=== PATIENT | male | born 1960 | race African-American/Black ===

== ENCOUNTER 2016-12-16 21:21 | Emergency (ER) | payer OTHER ==
[~2016-12-16] VITALS: Ht 182.9 cm; Wt 143.6 kg
[~2016-12-16 21:21] MED LIST: ASPI325T8 PO; ATOR20TA58 PO; CALC667C6 PO; FURO40TA4 PO; LABE200T2 PO; LOSA50TA2 PO; LOSA50TA6 PO
[2016-12-16] MEDS ORDERED: FUROSEMIDE 40 MG/4 ML VIAL ONE (21:50)
--- NOTE | 2016-12-16 21:52 | PHYS DOC ---
General Chief Complaint: SHORTNESS OF BREATH Stated Complaint: SHORTNESS OF BREATH Time Seen by MD: 21:23 Source: patient, old records Exam Limitations: no limitations Problems: History of Present Illness Initial Comments Patient is a 56-year-old male who comes to the emergency department complaining of shortness of breath. Patient states that for the past month he's had worsening nausea and difficulty breathing. He says about a month ago every few days he would have an episode where he would get nauseous and vomit what he describes as clear phlegm. He noticed this took place primarily in the mornings however the last few days it' s happened right before bed as well. Initially these episodes would happen every few days, they have been increasing in frequency and intensity and for the past week he says he's had these episodes of nausea and vomiting of clear phlegm daily. Today he was feeling so badly that he chose not to take any of his normal medications. He has history of congestive heart failure and for the past week he's had difficulty breathing even at rest. ED VS: 99.3, 107, 22, 205/128, 95% RA Patient has history of diabetes however he's been off insulin for 2 years. He does not check his sugars and is not sure what his last hemoglobin A1c was. 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 Last echocardiogram was June 2015 ejection fraction 50-55% Patient used to follow with Dr. Saab he currently does not have a primary care physician. Patient follows with Dr. Fletcher nephrology. He denies focal abdominal pain, chest pain, fever chills sweats or myalgias, headache or focal weakness, changes with urination. Patient has had some loose stools he denies dark tarry stools and bright red blood per rectum. Timing/Duration: getting worse (2 weeks), changing over time Severity: severe Modifying Factors: worse with eating, worse with movement, improves with rest Associated Symptoms: cough, malaise, nausea/vomiting, shortness of breath, weakness, other Allergies: Coded Allergies: No Known Drug Allergies (Unverified , 02/24/14) Past Medical History Medical History: other (hypertension, Chronic Kidney Disease Stage 4 or 5 ( follows with Dr Fletcher/has refused dialysis since Jun 2015), obstructive sleep apnea, CVA x 2 (2010, 2012), hyperlipidemia, diabetes mellitus, congestive heart failure, morbid obesity, peripheral neuropathy, gastrointestinal bleed, peptic ulcer disease) Surgical History: no surgical history Social History Smoker: non-smoker Alcohol: none Drugs: none Review of Systems Constitutional: denies chills, denies diaphoresis, denies fever, malaise, weakness Respiratory: see HPI, cough, orthopnea, shortness of breath, denies stridor, wheezing Cardiovascular: see HPI, denies chest pain, edema, denies palpitations, denies syncope, other (PND, orthopnea) Gastrointestinal: denies abdominal pain, denies constipation, denies diarrhea, nausea, vomiting Genitourinary: denies dysuria, denies frequency, denies hematuria Musculoskeletal: denies back pain, denies joint swelling, denies neck pain Psychiatric/Neurological: denies headache, denies numbness, denies paresthesia , denies weakness Hematologic/Lymphatic: see HPI, denies blood clots, denies easy bleeding, denies easy bruising Physical Exam General Appearance: other (dyspnea noted at rest, conversational dyspnea to short sentences with 2L NC O2) Ear, Nose, Throat: hearing grossly normal, normal ENT inspection, normal pharynx (mucus membranes very dry, lips cracked) Neck: non-tender, supple Respiratory: chest non-tender, decreased breath sounds, accessory muscle use, wheezing, other (decreased BS b/l lower lung nieto, wheezes b/l, accessory muscle use, respiratory distress) Cardiovascular: normal peripheral pulses, tachycardia Gastrointestinal: normal bowel sounds, soft (obese, nondistended, no focal TTP , neg mcburney/harris, no mass) Back: no CVA tenderness, no vertebral tenderness Extremities: normal range of motion (4+ pitting lower extremity edema involving lower legs), pelvis stable Neurologic/Psychiatric: 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 Interpreted by me. Aspirin 324 mg by mouth, Lasix 20 mg IV, metoprolol 5 mg IV, and DuoNeb given upon patient arrival. 2207: VS improved after lopressor 5mg IV, currently HR 90, rr 33, BP 185/94, 95 % RA Pertinent labs: Hemoglobin 7.3 normocytic, d-dimer 2.78, INR 1.2, BUN 79, creatinine 12.3, corrected calcium 5.9, lactic acid 0.8, creatine kinase 2299, troponin I 0.447, BNP 22,345 Arterial blood gas: PH 7.423, PCO2 28.8, PO2 59, base excess -6, bicarbonate 18.8, PCO2 20, oxygen saturation 91% FiO2 21% 2324: I discussed the patient with Dr. marie who accepts ICU admission for transfer to [facility]. Cardiology, nephrology, and GI or surgery will likely need to be consulted. Dr. Stahl does request that I call nephrology tonight to see if there are orders which need to be implemented before the morning. 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 No further orders, plan for dialysis in am. IMPRESSIONS: Respiratory distress Congestive heart failure End-stage renal disease Rhabdomyolysis Normocytic anemia with history of GI bleed Nausea vomiting Elevated troponin and d-dimer Hypocalcemia Departure Time of Disposition: 23:32 Disposition: 02 XFER SHT-TRM HOSP Diagnosis: Respiratory Distress, CHF, ESRD, elevated troponin Condition: STABLE Additional Instructions: EMS transfer to [facility] for ICU admission Dr Stahl is accepting, cardiology/ nephrology to be consulted on arrival. Critical Care Note Total Time (mins): 30 Comments Critical care time spent going through old records, contacting specialists and arranging transfer, rechecking patient and documentation. ANN POLANCO DO Dec 16, 2016 21:52
[2016-12-16] MEDS ORDERED: FUROSEMIDE 40 MG/4 ML VIAL IVP ONE (22:00)
[2016-12-16] MEDS ORDERED: METOPROLOL TARTRATE 5 MG/5 ML VIAL. IV ONE (22:00)
[2016-12-16] MEDS ORDERED: ASPIRIN 81 MG TAB.CHEW PO ONE (22:00)
[2016-12-16] MEDS ORDERED: IPRATRPIUM/ALBUTEROL 0.5/2.5MG 3 ML NEBU. NEB ONE (22:00)
[2016-12-16 22:16] LABS: BASO % 1 % (0-3); EOS # 0.5 x10^3/uL (0.0-0.7); EOS % 6 % (0-3); HEMATOCRIT 22.2 % (39.0-53.0); HEMOGLOBIN 7.3 g/dL (13.0-17.5); LYMPH # 0.9 x10^3/uL (1.0-4.8); LYMPH % 11 % (24-48); MEAN CORPUSCULAR HEMOGLOBIN 28 pg (25-35); MEAN CORPUSCULAR HGB CONC 33 g/dL (31-37); MEAN CORPUSCULAR VOLUME 83 fL (79-100); MONO # 0.5 x10^3/uL (0.0-1.1); MONO % 6 % (0-9); NEUT # 6.2 x10^3uL (1.8-7.7); NEUT % 76 % (31-73); PLATELET COUNT 207 x10^3/uL (140-400); RED BLOOD COUNT 2.66 x10^6/uL (4.30-5.70); RED CELL DISTRIBUTION WIDTH 16.2 % (11.5-14.5); WHITE BLOOD COUNT 8.2 x10^3/uL (4.0-11.0)
[2016-12-16 22:42] LABS: ALBUMIN 3.3 g/dL (3.4-5.0); ALBUMIN/GLOBULIN RATIO 0.8 (1.0-1.7); CREATININE 12.3 mg/dL (0.7-1.3); GFR 5.1; POTASSIUM 3.7 mmol/L (3.5-5.1); TOTAL BILIRUBIN 0.5 mg/dL (0.2-1.0); TOTAL PROTEIN 7.5 g/dL (6.4-8.2)
[2016-12-16 22:48] LABS: CALCIUM 5.3 mg/dL (8.5-10.1)
[2016-12-16 23:23] LABS: BGAS PH 7.42 (7.35-7.46)
[2016-12-17 00:15] VITALS: BP 186/116
--- NOTE | 2016-12-17 06:28 | EKG ---
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
--- NOTE | 2016-12-17 09:24 | RAD ---
Portable chest, 12/16/2016: History: Congestive heart failure, shortness of breath Comparison is made to a study from 06/27/2015. The heart is enlarged. The pulmonary vascularity is within normal limits. Partial obscuration of the left hemidiaphragm is compatible with minimal atelectasis and/or scarring. A similar appearance was present on the previous study. The patient's size and the portable technique may be contributing to this appearance. No new pulmonary abnormality is seen. No pleural fluid is evident. Moderate spurring is present in the spine. IMPRESSION: 1. Cardiomegaly. 2. Minimal left basilar atelectasis and/or scarring.
== END 2016-12-17 00:34 | disposition short-term general hospital (02) ==
LOC: ER 21:21
DX: I13.2 Hypertensive heart and chronic kidney disease with heart failure and with stage 5 chronic kidney disease, or end stage renal disease (principal); I50.9 Heart failure, unspecified; N18.6 End stage renal disease; E83.51 Hypocalcemia; D64.9 Anemia, unspecified; M62.82 Rhabdomyolysis; G47.33 Obstructive sleep apnea (adult) (pediatric); E11.22 Type 2 diabetes mellitus with diabetic chronic kidney disease; E11.42 Type 2 diabetes mellitus with diabetic polyneuropathy; E66.01 Morbid (severe) obesity due to excess calories; Z68.41 Body mass index [BMI] 40.0-44.9, adult; Z86.73 Personal history of transient ischemic attack (TIA), and cerebral infarction without residual deficits; Z87.11 Personal history of peptic ulcer disease
CPT/HCPCS: 36415; 71010; 80053; 80320; 82550; 82803; 83605; 83880; 84484; 85027; 85379; 85610; 85730; 87040; 93005; 94640; 96374; 96375; 99291; J1940; J3490; J7620; G0480

== ENCOUNTER → 2017-02-17 | Day surgery (SDC) | payer OTHER ==
[~2017-02-17] MED LIST changes: +BUPIVACAINE-EPI 0.25%-1:200000 MPF 30 ML VIAL. ONE
--- NOTE | 2017-02-19 15:39 | PATHOLOGY ---
PATHOLOGY REPORT * * * * * * * * FINAL DIAGNOSIS: Skin with underlying fibroadipose tissue, "posterior neck mass": - Ruptured epidermal inclusion cyst with acute and chronic inflammation with foreign body giant cell reaction. - See comment COMMENT: The inflammation extends to the margins.. (FANTASMA:; 02/19/2017) REPORT ELECTRONICALLY SIGNED BY: Huan Pa M.D. DATE/TIME: 02/19/2017 15:38 * * * * * * * * GROSS PATHOLOGY: The specimen is received in formalin, labeled "Jeffrey, posterior neck mass" is an unoriented brown skin ellipse measuring 3.9 x 1.0 cm, excised to a maximum depth of 1.7 cm. There is an ulcerated appearance of the epidermis that measures 0.3 cm in greatest dimension, and 0.1 cm to the nearest long cutaneous margin. Sectioning reveals grossly thickened dermis. The deep aspect is disrupted. A definitive cyst is indeterminate. Complete excision of a cyst is indeterminate. The specimen is inked and investment representative sections are submitted as follows: A1 tips A2 transverse sections (GIRMA; 02/18/2017) INITIAL CPT CODE(S): 35342 Professional services performed [place] [address] Technical services performed by [facility] at [address] [place] [address], [address] [address]. SPECIMEN(S) RECEIVED: A.Posterior neck mass CLINICAL HISTORY: Sebaceous cyst PATIENT: WAQAR BARCENAS SR /AGE: 6 1960 (Age: 56) PATIENT #: [id number] ALT CASE #: SPECIMEN COLLECTION DATE: 02/17/2017 SPECIMEN RECEIVED DATE: 02/17/2017 [facility] - [address] [place] [address] - PHONE: [phone] * * * END OF REPORT * * *
== END | disposition home or self-care (01) ==
LOC: SURG 07:25
PROVIDERS: ATTEND Surgery
DX: L72.0 Epidermal cyst (principal); I25.10 Atherosclerotic heart disease of native coronary artery without angina pectoris; E78.00 Pure hypercholesterolemia, unspecified; G62.9 Polyneuropathy, unspecified; Z86.73 Personal history of transient ischemic attack (TIA), and cerebral infarction without residual deficits
CPT/HCPCS: 11406; 88304; J3490

== ENCOUNTER 2018-04-08 18:01 | Emergency (ER) | payer OTHER ==
[~2018-04-08] VITALS: Ht 182.9 cm; Wt 143.6 kg
[~2018-04-08 18:01] MED LIST changes: -BUPIVACAINE-EPI 0.25%-1:200000 MPF 30 ML VIAL. ONE; -LABE200T2 PO; +LABE200T4 PO; -LOSA50TA6 PO; +LOSA50TA7 PO
[2018-04-08] MEDS ORDERED: IV NORMAL SALINE 250ML 250 ML IV ONE (18:45)
[2018-04-08 18:54] LABS: BASO # 0.1 x10^3/uL (0.0-0.2); BASO % 1 % (0-3); EOS # 0.1 x10^3/uL (0.0-0.7); EOS % 1 % (0-3); HEMOGLOBIN 13.6 g/dL (13.0-17.5); LYMPH # 1.3 x10^3/uL (1.0-4.8); LYMPH % 19 % (24-48); MEAN CORPUSCULAR HEMOGLOBIN 31 pg (25-35); MEAN CORPUSCULAR HGB CONC 33 g/dL (31-37); MEAN CORPUSCULAR VOLUME 94 fL (79-100); MONO # 0.6 x10^3/uL (0.0-1.1); MONO % 9 % (0-9); NEUT # 5.1 x10^3uL (1.8-7.7); NEUT % 71 % (31-73); PLATELET COUNT 268 x10^3/uL (140-400); RED BLOOD COUNT 4.35 x10^6/uL (4.30-5.70); RED CELL DISTRIBUTION WIDTH 16.9 % (11.5-14.5); WHITE BLOOD COUNT 7.2 x10^3/uL (4.0-11.0)
--- NOTE | 2018-04-08 19:04 | PHYS DOC ---
Past History Past Medical History: CHF, COPD, CVA, Diabetes, Hypertension, Other Past Surgical History: No Surgical History Smoking: Non-smoker Alcohol Use: None Drug Use: None Adult General Chief Complaint Chief Complaint: DIZZY/LIGHT HEADED HPI HPI Patient is a 57-year-old male who presents with complaint of feeling dizzy. Patient states that he had his morning dialysis today and he also been dialyzed yesterday because he had missed dialysis the day before. Patient states that he believes they had taken a bit over 3 L of fluid off today. He states that he usually takes his blood pressure medication in the evening and then goes to sleep so does not typically demonstrates symptoms after taking his blood pressure medication but this evening, he brought his granddaughter to the emergency room to be seen for an injury. He states that after arriving here, he started to feel dizzy. He states that prior to coming to the emergency room he did take his blood pressure medication. Blood pressure upon arrival was 88/37. He denies any chest pain or shortness of breath. He just states that he feels weak and dizzy when he stands up. Review of Systems Review of Systems Constitutional: Denies fever or chills [] Respiratory: Denies cough or shortness of breath [] Cardiovascular: Denies chest pain[] GI: Denies abdominal pain, nausea, vomiting or diarrhea [] Integument: Denies rash or skin lesions [] Neurologic: Denies headache, focal weakness or sensory changes. Patient complains of lightheadedness/dizziness. [] All other systems were reviewed and found to be within normal limits, except as documented in this note. Current Medications Current Medications Current Medications Medications (Trade) Dose Ordered Sig/Apple Start Time Stop Time Status Last Admin Dose Admin Sodium Chloride 250 ml @ 0 mls/hr 1X ONCE 04/08/18 18:45 04/08/18 18:46 DC 04/08/18 18:44 250 MLS/HR Allergies Allergies Allergies Coded Allergies Type Severity Reaction Last Updated Verified No Known Drug Allergies 02/24/14 No Physical Exam Physical Exam Constitutional: Well developed, well nourished, no acute distress, non-toxic appearance. [] HENT: Normocephalic, atraumatic, bilateral external ears normal, oropharynx moist, no oral exudates, nose normal. [] Eyes: PERRLA, EOMI, conjunctiva normal, no discharge. [] Neck: Normal range of motion, no tenderness, supple, no stridor. [] Cardiovascular:Heart rate regular rhythm [] Lungs & Thorax: Bilateral breath sounds clear to auscultation [] Abdomen: Bowel sounds normal, soft, no tenderness. [] Skin: Warm, dry, no erythema, no rash. [] Extremities: No tenderness, no cyanosis, no clubbing, ROM intact. [] Neurologic: Alert and oriented X 3, normal motor function, normal sensory function, no focal deficits noted. [] Current Patient Data Vital Signs Vital Signs Date Time Temp Pulse Resp B/P (MAP) Pulse Ox O2 Delivery O2 Flow Rate FiO2 04/08/18 18:37 98.3 64 18 98 Room Air EKG EKG [] Radiology/Procedures Radiology/Procedures [] Course & Med Decision Making Course & Med Decision Making Pertinent Labs and Imaging studies reviewed. (See chart for details) [] Dragon Disclaimer Dragon Disclaimer This electronic medical record was generated, in whole or in part, using a voice recognition dictation system. Departure Departure: Impression: Primary Impression: Hypotension Additional Impression: Hyperkalemia Disposition: 01 HOME, SELF-CARE Condition: STABLE Referrals: CRISTINA WASHBURN (PCP) Patient Instructions: Hyperkalemia, Hypotension Problem Qualifiers Primary Impression: Hypotension Hypotension type: hemodialysis-associated hypotension Qualified Codes: I95.3 - Hypotension of hemodialysis CROW BALLARD Jr. DO Apr 08, 2018 19:04
[2018-04-08 20:40] LABS: ALBUMIN 3.9 g/dL (3.4-5.0); ALBUMIN/GLOBULIN RATIO 0.8 (1.0-1.7); CREATININE 8.7 mg/dL (0.7-1.3); GFR 7.6; MAGNESIUM 1.9 mg/dL (1.8-2.4); PHOSPHORUS 4.9 mg/dL (2.6-4.7); POTASSIUM 5.9 mmol/L (3.5-5.1); TOTAL BILIRUBIN 0.5 mg/dL (0.2-1.0); TOTAL PROTEIN 8.5 g/dL (6.4-8.2)
[2018-04-08] MEDS ORDERED: SODIUM POLYSTYRENE SULFONATE 15 GM/60 ML ORAL.SUSP. PO ONE (21:30)
[2018-04-08 22:00] VITALS: BP 95/46
--- NOTE | 2018-04-09 07:08 | EKG ---
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
== END 2018-04-08 22:12 | disposition home or self-care (01) ==
LOC: ER 18:01
DX: I95.3 Hypotension of hemodialysis (principal); E87.5 Hyperkalemia; R42 Dizziness and giddiness; I11.0 Hypertensive heart disease with heart failure; I50.9 Heart failure, unspecified; E11.9 Type 2 diabetes mellitus without complications; J44.9 Chronic obstructive pulmonary disease, unspecified
CPT/HCPCS: 36415; 80053; 83735; 84100; 85025; 93005; 96360; 96361; 99285; J7050

== ENCOUNTER → 2018-07-23 | Outpatient (CLI) | payer OTHER ==
[~2018-07-23] MED LIST changes: -LOSA50TA2 PO; -LOSA50TA7 PO; +LOSA50TA86 PO
--- NOTE | 2018-07-23 15:42 | RAD ---
Examination: 3 views of the right wrist HISTORY: History of wrist pain COMPARISON: None available FINDINGS: The alignment of the carpal bones grossly appears unremarkable. The alignment of the carpal metacarpal joint grossly appears unremarkable. There is no acute fracture or dislocation identified. IMPRESSION: No acute osseous findings. Electronically signed by: Gagandeep Sheffield MD (07/23/2018 3:37 PM) [id number]
== END | disposition home or self-care (01) ==
LOC: PMG 15:19
PROVIDERS: ATTEND Registered Nurse
DX: M25.531 Pain in right wrist (principal)
CPT/HCPCS: 73110

== ENCOUNTER 2019-08-23 14:53 | Emergency (ER) | payer MEDICARE, OTHER ==
[~2019-08-23] VITALS: Ht 182.9 cm; Wt 147.7 kg
[2019-08-23] MEDS ORDERED: hydrALAZINE 20 MG/ML VIAL. IV ONE (15:30)
[2019-08-23] MEDS ORDERED: cloNIDine HCL 0.1 MG TABLET PO ONE (15:30)
--- NOTE | 2019-08-23 15:38 | RAD ---
CT HEAD WO CONTRAST Indication: Left eye blurriness. Exposure: One or more of the following individualized dose reduction techniques were utilized for this examination: 1. Automated exposure control 2. Adjustment of the mA and/or kV according to patient size 3. Use of iterative reconstruction technique. Technique: Standard imaging without intravenous contrast. Comparison: None FINDINGS: No evidence of acute intracranial hemorrhage, mass effect, midline shift or abnormal extra-axial fluid collection. Oh-white matter distinction is intact. Ventricles and sulci are symmetric. Visualized orbits appear unremarkable and symmetric. No significant acute scalp swelling. Intracranial arterial calcifications. Partially visualized right maxillary sinus demonstrates near complete filling with abnormal tissue. Other visualized sinuses are clear. Mastoids appear clear. No acute skull abnormality. IMPRESSION: 1. No evidence of acute intracranial hemorrhage. Note that CT can be insensitive for detection of acute stroke. 2. Severe right maxillary sinus disease, partially visualized. Electronically signed by: Waqas Lyn MD (08/23/2019 3:35 PM) [id number]
[2019-08-23 15:54] LABS: BASO # 0.1 x10^3/uL (0.0-0.2); BASO % 1 % (0-3); EOS # 0.2 x10^3/uL (0.0-0.7); EOS % 3 % (0-3); HEMATOCRIT 32.8 % (39.0-53.0); HEMOGLOBIN 10.8 g/dL (13.0-17.5); LYMPH # 0.9 x10^3/uL (1.0-4.8); LYMPH % 13 % (24-48); MEAN CORPUSCULAR HEMOGLOBIN 32 pg (25-35); MEAN CORPUSCULAR HGB CONC 33 g/dL (31-37); MEAN CORPUSCULAR VOLUME 96 fL (79-100); MONO # 0.6 x10^3/uL (0.0-1.1); MONO % 8 % (0-9); NEUT # 5.3 x10^3uL (1.8-7.7); NEUT % 75 % (31-73); PLATELET COUNT 209 x10^3/uL (140-400); RED BLOOD COUNT 3.42 x10^6/uL (4.30-5.70); RED CELL DISTRIBUTION WIDTH 14.3 % (11.5-14.5)
--- NOTE | 2019-08-23 15:59 | PHYS DOC ---
Past History Past Medical History: CHF, COPD, CVA, Diabetes, Hypertension, Stroke, Other Additional Past Medical Histor: stroke x2 Past Surgical History: No Surgical History Smoking: Non-smoker Alcohol Use: None Drug Use: None Adult General Chief Complaint Chief Complaint: BLURRED/DOUBLE VISION HPI HPI 58-year-old male presents with report of left sided weakness/heaviness to his eye. Reports no blurry vision. Patient reports initially started 1 week ago after a bout of nausea and vomiting. Patient thought he might have contracted a viral illness. Patient subsequently reports symptoms of the base and I have not gone away. Denies trauma. Denies fever or chills. Patient does report some intermittent chest pressure which has been going on for the past few days. Reports yesterday he took the trash out with subsequent dyspnea after exerting himself. Denies diaphoresis. Denies leg swelling or calf tenderness. Patient davila s undergo peritoneal dialysis daily. Reports upon presenting to the dialysis center today patient was noted to have a significantly elevated blood pressure in the 220s over 130s range. Patient had reported his eye heaviness and was advised to present to the ER with concern for possible CVA. Review of Systems Review of Systems Constitutional: Denies fever or chills Eyes: Denies redness or eye pain HENT: Denies nasal congestion or sore throat Respiratory: Denies cough or shortness of breath Cardiovascular: Denies chest pain or palpitations GI: Denies abdominal pain; reports nausea and vomiting- now resolved. : Denies dysuria or hematuria Musculoskeletal: Denies back pain or joint pain Integument: Denies rash or skin lesions Neurologic: Denies headache; reports dysarthria and left facial weakness Complete systems were reviewed and found to be within normal limits, except as documented in this note. Current Medications Current Medications Current Medications Medications (Trade) Dose Ordered Sig/Apple Start Time Stop Time Status Last Admin Dose Admin Clonidine HCl (Catapres) 0.1 mg 1X ONCE 08/23/19 15:30 08/23/19 15:31 DC 08/23/19 15:49 0.1 MG Hydralazine HCl (Apresoline) 10 mg 1X ONCE 08/23/19 15:30 08/23/19 15:31 DC 08/23/19 15:47 10 MG Allergies Allergies Allergies Coded Allergies Type Severity Reaction Last Updated Verified No Known Drug Allergies 02/24/14 No Physical Exam Physical Exam Constitutional: Well developed, well nourished, no acute distress, non-toxic appearance, obese HENT: Normocephalic, atraumatic, oropharynx moist Eyes: PERRL, EOMI, conjunctiva normal, no discharge, no nystagmus Neck: Normal range of motion, no tenderness, supple Cardiovascular: Heart rate normal, regular rhythm Lungs & Thorax: Bilateral breath sounds clear to auscultation, no wheezing Abdomen: Soft, no tenderness Skin: Warm, dry, no erythema, no rash Extremities: No tenderness, ROM intact, no edema Neurologic: Alert and oriented X 3, normal motor function, normal sensory function, no focal deficits noted Psychologic: Affect normal, judgment normal Current Patient Data Vital Signs Vital Signs Date Time Temp Pulse Resp B/P (MAP) Pulse Ox O2 Delivery O2 Flow Rate FiO2 08/23/19 15:49 83 182/97 08/23/19 14:53 98.0 20 98 Room Air EKG EKG @ 1530 NSR at 82bpm, NO ST elevation, LVH, t wave inversion V5-V6 compared to prior EKG from 04/08/18, t waves depression more prominent today in comparison to prior. Radiology/Procedures Radiology/Procedures PROCEDURE: CT HEAD WO CONTRAST CT HEAD WO CONTRAST Indication: Left eye blurriness. Exposure: One or more of the following individualized dose reduction techniques were utilized for this examination: 1. Automated exposure control 2. Adjustment of the mA and/or kV according to patient size 3. Use of iterative reconstruction technique. Technique: Standard imaging without intravenous contrast. Comparison: None FINDINGS: No evidence of acute intracranial hemorrhage, mass effect, midline shift or abnormal extra-axial fluid collection. Oh-white matter distinction is intact. Ventricles and sulci are symmetric. Visualized orbits appear unremarkable and symmetric. No significant acute scalp swelling. Intracranial arterial calcifications. Partially visualized right maxillary sinus demonstrates near complete filling with abnormal tissue. Other visualized sinuses are clear. Mastoids appear clear. No acute skull abnormality. IMPRESSION: 1. No evidence of acute intracranial hemorrhage. Note that CT can be insensitive for detection of acute stroke. 2. Severe right maxillary sinus disease, partially visualized. Electronically signed by: Waqas Lyn MD (08/23/2019 3:35 PM) [id number] PROCEDURE: CHEST PA & LATERAL PA and lateral chest x-rays HISTORY: Weakness, chest pain. COMPARISON: Chest x-ray December 16, 2016. FINDINGS: Cardiomegaly stable. Mediastinum unremarkable. No pneumothorax, pulmonary opacities or pleural effusions. Thoracic disc osteophytes. IMPRESSION: No acute process. Mild cardiomegaly is stable to prior x-rays. Electronically signed by: Kelvin Richardson MD (08/23/2019 6:04 PM) [id number] Course & Med Decision Making Course & Med Decision Making Pertinent Labs and Imaging studies reviewed. (See chart for details) Patient presents with report of significant elevated blood pressure at dialysis today. Patient undergoes daily peritoneal dialysis. Patient reports concern for left facial "heaviness" that has been ongoing for the past 7 days. NIHSS 0. Blood pressure addressed. EKG with nonspecific findings. Labs obtained and posted to chart. Creatinine 18.8. Potassium within normal limits. Troponin 2.147. Upon further investigation patient does report some chest discomfort over the past few days with dyspnea on exertion yesterday. Per [employer] review patient does have some slightly bumped troponins in the past but have never been above 0.6. Concern for an STEMI. Heparin bolus and drip initiated. Discussed case with Dr. Swann (cardiology) who is in agreement that patient should be transferred to [facility] for further evaluation and treatment. Patient requiring transfer for admission to [facility] for furt her evaluation and treatment. Discussed with Dr. Bassett (hospitalist) who is in agreement with transfer. Discussed findings and plan with patient and family, who acknowledge understanding and agreement. Dragon Disclaimer Dragon Disclaimer This electronic medical record was generated, in whole or in part, using a voice recognition dictation system. Departure Departure: Impression: Primary Impression: NSTEMI (non-ST elevated myocardial infarction) Additional Impressions: Renal failure Hypertensive emergency Hx of weakness Disposition: 05 TRANSFER OTHER Condition: GUARDED Referrals: CRISTINA WASHBURN (PCP) NIHSS - ED NIH Stroke Scale: NIH Stroke Scale Response (Comments) Value Level of Consciousness: 0 Alert/Responsive 0 LOC Questions: 0 Answers both correctly 0 LOC Commands: 0 Performs both tasks 0 Best Gaze: 0 Normal 0 Visual: 0 No visual loss 0 Facial Palsy: 0 Normal, symmetrical 0 Motor - Left Arm 0 No drift 0 Motor - Right Arm 0 No drift 0 Motor - Left Leg 0 No drift 0 Motor: Right Leg 0 No drift 0 Limb Ataxia: 0 Absent 0 Sensory: 0 No loss 0 Best Language: 0 Normal 0 Dysathria: 0 Normal 0 Extinction and Inattention: 0 Normal 0 Total 0 HEART Score for Chest Pain PTs The HEART Score for CP Pts HEART Score for Chest Pain: HEART Score for Chest Pain Response (Comments) Value History Slighlty/Non-Suspicious 0 ECG Nonspecific Repolarizatio 1 Age >45 - < 65 1 Risk Factors >3 Risk Factors or Hx CAD 2 Troponin >3 x Normal Limit 2 Total 6 Risk Factors: Risk Factors: DM, Current or recent (<one month) smoker, HTN, HLP, family history of CAD, obesity. Risk Scores: Score 0 - 3: 2.5% MACE over next 6 weeks - Discharge Home Score 4 - 6: 20.3% MACE over next 6 weeks - Admit for Clinical Observation Score 7 - 10: 72.7% MACE over next 6 weeks - Early Invasive Strategies Critical Care Time Critical care time was 30 minutes which includes time at bedside, spent in discussion of patient's care with specialists and/or family members, with interpretation of laboratory and/or radiological studies and is exclusive of procedures. Problem Qualifiers Additional Impressions: Renal failure Renal failure chronicity: chronic Chronic kidney disease stage: on chronic dialysis Qualified Codes: N18.6 - End stage renal disease; Z99.2 - Dependence on renal dialysis WAQAS GUTIÉRREZ DO Aug 23, 2019 15:59
[2019-08-23 16:12] LABS: CALCIUM 6.6 mg/dL (8.5-10.1); CREATININE 18.8 mg/dL (0.7-1.3); GFR 3.1; POTASSIUM 3.8 mmol/L (3.5-5.1)
[2019-08-23 16:28] LABS: ALBUMIN/GLOBULIN RATIO 0.8 (1.0-1.7); MAGNESIUM 1.9 mg/dL (1.8-2.4); TOTAL BILIRUBIN 0.3 mg/dL (0.2-1.0); TOTAL PROTEIN 6.8 g/dL (6.4-8.2)
[2019-08-23] MEDS ORDERED: ASPIRIN 325 MG TABLET ONE (16:53)
[2019-08-23 16:57] VITALS: BP 170/104
[2019-08-23] MEDS ORDERED: HEPARIN 25,000UTS/250ML PREMIX 250 ML IV PRN ×2 (17:00→17:30)
[2019-08-23] MEDS ORDERED: ASPIRIN 325 MG TABLET PO ONE (17:15)
[2019-08-23] MEDS ORDERED: HEPARIN for IV BOLUS 10,000 UNIT/10 ML VIAL. IV ONE (17:30)
--- NOTE | 2019-08-23 18:07 | RAD ---
PA and lateral chest x-rays HISTORY: Weakness, chest pain. COMPARISON: Chest x-ray December 16, 2016. FINDINGS: Cardiomegaly stable. Mediastinum unremarkable. No pneumothorax, pulmonary opacities or pleural effusions. Thoracic disc osteophytes. IMPRESSION: No acute process. Mild cardiomegaly is stable to prior x-rays. Electronically signed by: Kelvin Richardson MD (08/23/2019 6:04 PM) [id number]
--- NOTE | 2019-08-23 18:10 | EKG ---
[address] [address] Test Date: 2019-08-23 Test Time: 15:30:53 Pat Name: WAQAR MAY Department: Room: Gender: M [employer]: : 1960 Requested By: WAQAR GUTIÉRREZ Order Number: [id number] Reading MD: Measurements Intervals [place] Rate: 82 P: 47 NC: 198 QRS: 42 QRSD: 132 T: -1 QT: 428 QTc: 504 Interpretive Statements SINUS RHYTHM NON SPECIFIC INTRAVENTRICULAR BLOCK QRS(T) CONTOUR ABNORMALITY CONSIDER ANTEROSEPTAL MYOCARDIAL DAMAGE ABNORMAL ECG RI6.01 No previous ECG available for comparison
== END 2019-08-23 18:02 | disposition short-term general hospital (02) ==
LOC: ER 14:53
DX: I13.2 Hypertensive heart and chronic kidney disease with heart failure and with stage 5 chronic kidney disease, or end stage renal disease (principal); N18.6 End stage renal disease; I21.4 Non-ST elevation (NSTEMI) myocardial infarction; R53.1 Weakness; H53.8 Other visual disturbances; R11.2 Nausea with vomiting, unspecified; I11.0 Hypertensive heart disease with heart failure; I50.9 Heart failure, unspecified; J44.9 Chronic obstructive pulmonary disease, unspecified; I97.821 Postprocedural cerebrovascular infarction following other surgery; I25.2 Old myocardial infarction
CPT/HCPCS: 36415; 70450; 71046; 80053; 82553; 83690; 83735; 84484; 85025; 85610; 85730; 93005; 96365; 96375; 99291; J0360; J1644

== ENCOUNTER → 2021-08-19 | Outpatient (CLI) | payer MEDICARE ==
--- NOTE | 2021-08-19 13:35 | RAD ---
LEFT LOWER EXTREMITY DUPLEX ARTERY ULTRASOUND Indication: Reason: CHRONIC PRESSURE ULCER LT LOWER LEG Comparison: None. Procedure: Real-time grayscale, color flow Doppler, and Doppler spectral waveform analysis of the art erial system of the lower extremity is performed. Findings: Normal triphasic waveforms are present in the common femoral artery, superficial femoral artery, and the popliteal artery. There is triphasic waveform of the proximal posterior tibial artery. There is m onophasic waveform of the distal posterior tibial artery. There is monophasic waveform of the peronea l artery. There is monophasic waveform at the dorsalis pedis artery. The anterior tibial artery demon strates biphasic waveform. There is plaque noted throughout the arteries. There is no focal elevated peak systolic velocity. IMPRESSION: There are monophasic waveforms of the distal posterior tibial artery, peroneal artery, and dorsalis p drake artery suggesting peripheral arterial disease. Electronically signed by: Francisco Kumar MD (08/19/2021 1:33 PM) [id number]
== END ==
LOC: US 12:39
PROVIDERS: ATTEND Podiatrist
DX: L97.822 Non-pressure chronic ulcer of other part of left lower leg with fat layer exposed (principal); I77.9 Disorder of arteries and arterioles, unspecified
CPT/HCPCS: 93926